=== PATIENT | female | born 1980 | race Caucasian/White ===

== ENCOUNTER 2016-06-05 13:56 | Emergency (ER) | payer SELFPAY ==
[~2016-06-05 13:56] MED LIST: BUSP15TA PO; RISP2TAB37 PO; ZANT150T2 PO
[2016-06-05 14:04] VITALS: BP 154/92; PULSE 110; RESP 18; TEMP 98.5; O2SAT 97
== END 2016-06-05 14:20 | disposition left against medical advice (07) ==
LOC: NEPE 13:56
DX: R68.89 Other general symptoms and signs (principal)
CPT/HCPCS: 99281

== ENCOUNTER 2016-06-05 14:25 | Emergency (ER) | payer SELFPAY ==
[~2016-06-05] VITALS: Ht 165.1 cm; Wt 65.0 kg
[2016-06-05 14:27] VITALS: BP 141/95; PULSE 134; RESP 20; TEMP 98.1; O2SAT 99
--- NOTE | 2016-06-05 15:18 | PD ---
HPI Chief Complaint: anxiety Time Seen by Provider: 14:39 Travel History International Travel<30 days: No Contact w/Intl Traveler<30days: No History of Present Illness HPI Is a 35-year-old woman who presents to the emergency prior to saying that she was getting her hair done, they were bleaching a, when she began to feel like " I was on fire". She describes pins and needles everywhere. Just describes her heart racing, feeling flushed, and having a confused healing. They called [facility] today brought into the emergency department. While in the waiting room she began to feel better so she left. She then came back and saying that she had a repeat episode of the same symptoms including confusion. She is a history of headaches and anxiety and previous symptoms in the past. She denies having had any symptoms exactly similar to this episode in the past. History Past Medical History Narrative Medical Lupus Depression and anxiety : 4 Para: 2 Social History Alcohol Use: No Tobacco Use: Yes (05/31 PPD) Allergies-Medications (Allergen,Severity, Reaction): Coded Allergies: Flagyl (Verified Allergy, Severe, RASH, 06/05/16) Hydrocodone (Verified Allergy, Severe, 06/05/16) Morphine (Verified Allergy, Severe, Anaphylaxis, 06/05/16) Penicillin (Verified Allergy, Severe, Anaphylaxis, 06/05/16) Sulfa (Verified Allergy, Severe, RASH, 06/05/16) Reported Meds & Prescriptions Reported Meds & Active Scripts Active Zantac (Ranitidine HCl) 150 Mg Tab 150 Mg PO BID Reported Buspirone (Buspirone HCl) 15 Mg Tab 15 Mg PO BID Risperdal (Risperidone) 2 Mg Tab 2 Mg PO HS Review of Systems Except as stated in HPI: all other systems reviewed are Neg Physical Exam Narrative GENERAL: Well-appearing 35-year-old woman, no acute distress. SKIN: Warm and dry. HEAD: Atraumatic. Normocephalic. CARDIOVASCULAR: Regular rate and rhythm. No murmur appreciated. RESPIRATORY: No accessory muscle use. Clear to auscultation. Breath sounds equal bilaterally. GASTROINTESTINAL: Abdomen soft, non-tender, nondistended. Hepatic and splenic margins not palpable. MUSCULOSKELETAL: No obvious deformities. NEUROLOGICAL: Awake and alert. No evidence of overt confusion. No obvious cranial nerve deficits. Motor grossly within normal limits. Normal speech. PSYCHIATRIC: Appropriate mood and affect; insight and judgment normal, minimally anxious. Data Data Last Documented VS Vital Signs Date Time Temp Pulse Resp B/P Pulse Ox O2 Delivery O2 Flow Rate FiO2 06/05/16 15:01 06/05/16 14:27 98.1 134 20 99 Room Air MDM Medical Decision Making Medical Screen Exam Complete: Yes Emergency Medical Condition: Yes Differential Diagnosis Anxiety, adverse reaction to salon chemicals, lupus cerebritis, other Narrative Course Medical decision making Well-appearing 35-year-old woman with what appears to be some element of anxiety related episode possibly triggered by chemicals the hair salon. She has no other evidence of lupus flare to suggest a lupus cerebritis. She is no other psychotic symptoms. Recommend supportive treatment. Diagnosis Primary Impression: Anxiety Additional Instructions: Drink plenty of fluids stay well-hydrated. Follow-up with her primary doctor on Tuesday for not feeling completely well. Med/Other Pt SpecificInfo: No Change to Meds Disposition: 01 DISCHARGE HOME Condition: Stable Janak Mariscal MD Jun 05, 2016 15:18
== END 2016-06-05 15:34 | disposition home or self-care (01) ==
LOC: NEPC 14:25
DX: F41.9 Anxiety disorder, unspecified (principal); R41.0 Disorientation, unspecified; M32.9 Systemic lupus erythematosus, unspecified; F17.210 Nicotine dependence, cigarettes, uncomplicated
CPT/HCPCS: 99283

== ENCOUNTER 2016-07-16 08:28 | Emergency (ER) | payer SELFPAY ==
[~2016-07-16] VITALS: Ht 157.5 cm; Wt 68.0 kg
[2016-07-16 08:31] VITALS: BP 148/86; PULSE 116; RESP 17; TEMP 98.2; O2SAT 97
[2016-07-16 08:47] LABS: BACTERIA, URINE RARE /hpf; BLOOD, URINE NEG (NEG); GLUCOSE,URINE NEG (NEG); KETONE, URINE NEG (NEG); NITRITE,URINE NEG (NEG); PH, URINE 5.5 (5.0-8.5); SQUAMOUS EPITHELIAL CELL URINE 1 /hpf (0-5); URINE COLOR LIGHT-YELLOW (YELLW/STRAW)
[2016-07-16 08:48] LABS: COMMENT (UR) CULT NOT INDICATED; CULTURE IF INDICATED CULT NOT INDICATED
== END 2016-07-16 10:32 | disposition left against medical advice (07) ==
LOC: NED 08:28
DX: R68.89 Other general symptoms and signs (principal)
CPT/HCPCS: 81001; 99281

== ENCOUNTER 2017-09-08 11:58 | Emergency (ER) | payer SELFPAY ==
[~2017-09-08] VITALS: Ht 157.5 cm; Wt 70.0 kg
[2017-09-08 12:19] VITALS: BP 135/70; PULSE 113; RESP 18; TEMP 98.8; O2SAT 98
--- NOTE | 2017-09-08 12:41 | PD ---
HPI Chief Complaint: Skin Problem Time Seen by Provider: 12:38 Travel History International Travel<30 days: No Contact w/Intl Traveler<30days: No Traveled to known affect area: No History of Present Illness HPI 36-year-old female presents emergency department status post sleeping at a local motel, and awakening with multiple insect bites to arms, chest, legs , and neck. She has significant itching, and low-grade fever last evening. This occurred 2 days ago. She denies fever today, but the itching is unbearable despite taking Benadryl. Patient has history of lupus and ulcerative colitis, but is currently not taking any medication for it. She denies significant pain. She is allergic to sulfa, hydrocodone, metronidazole, morphine, and penicillin. PFSH Past Medical History Arthritis: Yes Asthma: No Autoimmune Disease: Yes (LUPUS) Blood Disorders: No Anxiety: Yes Depression: Yes Heart Rhythm Problems: No Cancer: No Cardiovascular Problems: No High Cholesterol: No Chemotherapy: No Chest Pain: No Congestive Heart Failure: No COPD: No Cerebrovascular Accident: No Diabetes: No Diminished Hearing: No Endocrine: No Gastrointestinal Disorders: Yes (ULCERATIVE COLITIS) GERD: No Glaucoma: No Genitourinary: No Headaches: No Hiatal Hernia: No Hypertension: No Immune Disorder: Yes (LUPUS) Implanted Vascular Access Dvce: No Kidney Stones: Yes Musculoskeletal: Yes Neurologic: No Psychiatric: Yes Reproductive: No Respiratory: No Migraines: No Myocardial Infarction: No Radiation Therapy: No Renal Failure: No Seizures: No Sickle Cell Disease: No Sleep Apnea: No Thyroid Disease: No Ulcer: No ?: Not : 4 Para: 2 Miscarriage: 2 : 0 Ovarian Cysts: Yes Tubal Ligation: Yes Past Surgical History Abdominal Surgery: No AICD: No Body Medical Devices: LUPUS, ULCERATIVE COLITIS Cardiac Surgery: No Section: Yes (X2) Ear Surgery: No Endocrine Surgery: No Eye Surgery: No Genitourinary Surgery: No Gynecologic Surgery: Yes (C SECTION X2) Joint Replacement: No Neurologic Surgery: No Oral Surgery: Yes (TONSILECTOMY) Pacemaker: No Thoracic Surgery: No Tonsillectomy: Yes Other Surgery: Yes (tonsillectomy, c section) Social History Alcohol Use: No Tobacco Use: Yes (1/2 PPD) Substance Use: Yes (HX OF IVDA) Allergies-Medications (Allergen,Severity, Reaction): Coded Allergies: Sulfa (Sulfonamide Antibiotics) (Unverified Allergy, Severe, RASH, 09/08/17 ) hydrocodone (Unverified Allergy, Severe, 09/08/17) metronidazole (Unverified Allergy, Severe, RASH, 09/08/17) morphine (Unverified Allergy, Severe, Anaphylaxis, 09/08/17) penicillin G (Unverified Allergy, Severe, Anaphylaxis, 09/08/17) Reported Meds & Prescriptions Reported Meds & Active Scripts Active Prednisone 20 Mg Tab 20 Mg PO BID 5 Days Zantac (Ranitidine HCl) 150 Mg Tab 150 Mg PO BID Reported Buspirone (Buspirone HCl) 15 Mg Tab 15 Mg PO BID Risperdal (Risperidone) 2 Mg Tab 2 Mg PO HS Review of Systems Except as stated in HPI: all other systems reviewed are Neg General / Constitutional: Positive: Fever (Low-grade last evening per) Eyes: No: Visual changes HENT: No: Headaches Cardiovascular: No: Chest Pain or Discomfort Respiratory: No: Shortness of Breath Gastrointestinal: No: Abdominal Pain Genitourinary: No: Dysuria Musculoskeletal: No: Pain Skin: Positive Itching, Positive Lesions, No Rash Neurologic: No: Weakness Psychiatric: No: Depression Endocrine: No: Polydipsia Hematologic/Lymphatic: No: Easy Bruising Physical Exam Narrative GENERAL: Patient appears in moderate distress due to itching per SKIN: Warm and dry. Normal color. Normal turgor. Patient has greater than 30 obvious insect bites with localized erythema and swelling consistent with allergic reaction to insect bite. There is no obvious signs of drainage or lymphangitis or streaking suggestive of cellulitis. HEAD: Atraumatic. Normocephalic. EYES: Pupils equal and round. No scleral icterus. No injection or drainage. ENT: No nasal bleeding or discharge. Mucous membranes pink and moist. Pharynx is clear. Airways patent. Uvula is midline. Tongue is normal. NECK: Trachea midline. Supple and nontender per CARDIOVASCULAR: Regular rate and rhythm. RESPIRATORY: No accessory muscle use. Clear to auscultation. Breath sounds equal bilaterally. MUSCULOSKELETAL: Extremities without clubbing, cyanosis, or edema. No obvious deformities. NEUROLOGICAL: Awake and alert. No obvious cranial nerve deficits. Motor grossly within normal limits. Five out of 5 muscle strength in the arms and legs. Normal speech. PSYCHIATRIC: Appropriate mood and affect; insight and judgment normal. Data Data Last Documented VS Vital Signs Date Time Temp Pulse Resp B/P (MAP) Pulse Ox O2 Delivery O2 Flow Rate FiO2 09/08/17 12:19 98.8 113 18 135/70 (91) 98 Orders Orders Prednisone (Deltasone) (09/08/17 12:45) [facility] Medical Decision Making Medical Screen Exam Complete: Yes Emergency Medical Condition: Yes Differential Diagnosis Bedbug bites. Insect bites with allergic reaction. Cellulitis per Narrative Course Patient is given 40 mg prednisone p.o. now. Patient is continued on prednisone 20 mg twice daily for 5 days. Patient is encouraged use of [id number] Benadryl and topical Caladryl lotion for itch. Patient is given a prescription for Keflex 500 mg 3 times daily for 7 days to be started if symptoms worsen suggestive of cellulitis as discussed. Work note is given. Patient to follow-up if symptoms do not improve or worsen as needed. Diagnosis Primary Impression: Insect bite, multiple Additional Impression: Insect sting allergy, current reaction Qualified Codes: T63.481A - Toxic effect of venom of other arthropod, accidental (unintentional), initial encounter Patient Instructions: General Instructions, Insect Bite or Sting (ED) Departure Forms: Work Release Enter return to work date: Sep 10, 2017 Additional Instructions: Patient is given 40 mg prednisone p.o. now. Patient is continued on prednisone 20 mg twice daily for 5 days. Patient is encouraged use of [id number] Benadryl and topical Caladryl lotion for itch. Patient is given a prescription for Keflex 500 mg 3 times daily for 7 days to be started if symptoms worsen suggestive of cellulitis as discussed. Work note is given. Patient to follow-up if symptoms do not improve or worsen as needed. Med/Other Pt SpecificInfo: Prescription(s) given Scripts Prednisone (Prednisone) 20 Mg Tab 20 MG PO BID for 5 Days, #10 TAB 0 Refills Prov: Art Avelar MD 09/08/17 Disposition: 01 DISCHARGE HOME Condition: Stable Suman Jon Sep 08, 2017 12:41
[2017-09-08] MEDS ORDERED: PRED20 PO (12:44)
[2017-09-08] MEDS ORDERED: predniSONE 20 MG TAB PO ONE (12:45)
[2017-09-08] MEDS ORDERED: CEPH-460 PO (12:59)
== END 2017-09-08 13:02 | disposition home or self-care (01) ==
LOC: NEPK 11:58
DX: T63.481A Toxic effect of venom of other arthropod, accidental (unintentional), initial encounter (principal); F17.200 Nicotine dependence, unspecified, uncomplicated
CPT/HCPCS: 99283; J7512

== ENCOUNTER 2017-10-29 19:54 | Observation (INO) | payer SELFPAY ==
[~2017-10-29] VITALS: Ht 157.5 cm; Wt 66.0 kg
[~2017-10-29 19:54] MED LIST changes: +CEPH-460 PO; +PRED20 PO
[2017-10-29 20:17] VITALS: BP 148/77; PULSE 99; RESP 18; TEMP 99.2; O2SAT 99
[2017-10-29] MEDS ORDERED: SODIUM CHLORIDE 0.9% FLUSH 10 ML FLUSH IVF PRN (20:45)
[2017-10-29] MEDS ORDERED: ASPIRIN 81 MG CHEW TAB PO ONE (20:45)
--- NOTE | 2017-10-29 21:06 | PD ---
HPI Chief Complaint: Cardiac Complaint Time Seen by Provider: 20:35 Travel History International Travel<30 days: No Contact w/Intl Traveler<30days: No Traveled to known affect area: No History of Present Illness HPI 37-year-old female presents to the emergency department with complaint of fluttering in her chest that started about a week ago and has been worse yesterday and today and now causing her shortness of breath when it occurs. She reports chest pain and pressure that comes and goes. The pain radiates to her back. When the chest pressure/pain occurs she feels dizzy and she gets a "lemon better" sensation in her jaw. She also says it "takes her breath away." When she is free of the chest pain/pressure and shortness of breath she has a dry cough. Denies shortness of breath without the chest pain/pressure. Otherwise she denies recent illness. Denies fever, vomiting. Denies family or self cardiac history. Denies recent surgeries or travel. Denies history of DVT /PE. Denies contraception use. Denies anticoagulant. Denies pain at this time , but reports a pressure in her chest. Denies shortness of breath at this time. Says she only has shortness of breath with the results of chest pain/ pressure. She is also complaining of excessive urination and a strong urine odor. Denies abdominal pain, abnormal vaginal discharge or odor. Has tried taking BC powder for symptom management. No known aggravating or relieving factors. Does have history of IV drug use and has been clean for 11 months. Denies alcohol use. Reports tobacco use. No primary care provider. Allergies as listed on the chart. History of lupus and hepatitis C. Has no other medical complaints. No other modifying factors or associated signs and symptoms. PFSH Past Medical History Arthritis: Yes Asthma: No Autoimmune Disease: Yes (LUPUS) Blood Disorders: No Anxiety: Yes Depression: Yes Heart Rhythm Problems: No Cancer: No Cardiovascular Problems: No High Cholesterol: No Chemotherapy: No Chest Pain: No Congestive Heart Failure: No COPD: No Cerebrovascular Accident: No Diabetes: No Diminished Hearing: No Endocrine: No Gastrointestinal Disorders: Yes (ULCERATIVE COLITIS) GERD: No Glaucoma: No Genitourinary: No Headaches: No Hepatitis: Yes (c) Hiatal Hernia: No Hypertension: No Immune Disorder: Yes (LUPUS) Implanted Vascular Access Dvce: No Kidney Stones: Yes Musculoskeletal: Yes Neurologic: No Psychiatric: Yes Reproductive: No Respiratory: No Migraines: No Myocardial Infarction: No Radiation Therapy: No Renal Failure: No Seizures: No Sickle Cell Disease: No Sleep Apnea: No Thyroid Disease: No Ulcer: No ?: Not : 4 Para: 2 Miscarriage: 2 : 0 Ovarian Cysts: Yes Tubal Ligation: Yes Past Surgical History Abdominal Surgery: No AICD: No Body Medical Devices: LUPUS, ULCERATIVE COLITIS Cardiac Surgery: No Section: Yes (X2) Ear Surgery: No Endocrine Surgery: No Eye Surgery: No Genitourinary Surgery: No Joint Replacement: No Neurologic Surgery: No Oral Surgery: Yes (TONSILECTOMY) Pacemaker: No Thoracic Surgery: No Tonsillectomy: Yes Other Surgery: Yes (tonsillectomy, c section) Social History Alcohol Use: No Tobacco Use: Yes (/2 PPD) Substance Use: Yes (HX OF IVDA) Allergies-Medications (Allergen,Severity, Reaction): Coded Allergies: Sulfa (Sulfonamide Antibiotics) (Unverified Allergy, Severe, RASH, 10/29/17) hydrocodone (Unverified Allergy, Severe, 10/29/17) metronidazole (Unverified Allergy, Severe, RASH, 10/29/17) morphine (Unverified Allergy, Severe, Anaphylaxis, 10/29/17) penicillin G (Unverified Allergy, Severe, Anaphylaxis, 10/29/17) Reported Meds & Prescriptions Reported Meds & Active Scripts Active Keflex (Cephalexin) 500 Mg Cap 500 Mg PO Q8H 7 Days Prednisone 20 Mg Tab 20 Mg PO BID 5 Days Zantac (Ranitidine HCl) 150 Mg Tab 150 Mg PO BID Reported Buspirone (Buspirone HCl) 15 Mg Tab 15 Mg PO BID Risperdal (Risperidone) 2 Mg Tab 2 Mg PO HS Review of Systems Except as stated in HPI: all other systems reviewed are Neg Physical Exam Narrative GENERAL: Well-nourished, well-developed female patient, in no acute distress SKIN: Warm and dry. HEAD: Atraumatic. Normocephalic. EYES: Pupils equal and round. No scleral icterus. No injection or drainage. ENT: Mucosa pink and moist. NECK: Trachea midline. CHEST: No reproducible chest wall tenderness; no crepitance or deformity. No retractions or use of accessory muscles. CARDIOVASCULAR: Regular rate and rhythm. No murmur appreciated. RESPIRATORY: No accessory muscle use. Clear to auscultation. Breath sounds equal bilaterally. No retractions or tachypnea. GASTROINTESTINAL: Abdomen soft, non-tender, nondistended. Hepatic and splenic margins not palpable. Bowel sounds are active 4 quadrants. MUSCULOSKELETAL: No obvious deformities. No clubbing. No cyanosis. No edema. BACK: No CVA tenderness. NEUROLOGICAL: Awake and alert. Oriented 3. No obvious cranial nerve deficits. Motor grossly within normal limits. Normal speech. Moves all extremities. 5/5 strength to all extremities. PSYCHIATRIC: Appropriate mood and affect; insight and judgment normal. Data Data Last Documented VS Vital Signs Date Time Temp Pulse Resp B/P (MAP) Pulse Ox O2 Delivery O2 Flow Rate FiO2 10/29/17 20:17 99.2 99 18 148/77 (100) 99 Orders Orders Electrocardiogram (10/29/17 20:44) Basic Metabolic Panel (Bmp) (10/29/17 20:44) Ckmb (Isoenzyme) Profile (10/29/17 20:44) Complete Blood Count With Diff (10/29/17 20:44) Magnesium (Mg) (10/29/17 20:44) Prothrombin Time / Inr (Pt) (10/29/17 20:44) Act Partial Throm Time (Ptt) (10/29/17 20:44) Troponin I (10/29/17 20:44) Chest, Single Ap (10/29/17 20:44) Ecg Monitoring (10/29/17 20:44) Bilateral Bp Monitoring (10/29/17 20:44) Iv Access Insert/Monitor (10/29/17 20:44) Oximetry (10/29/17 20:44) Aspirin Chew (Aspirin Chew) (10/29/17 20:45) Sodium Chloride 0.9% Flush (Ns Flush) (10/29/17 20:45) Urinalysis - C+S If Indicated (10/29/17 20:44) D-Dimer (10/29/17 20:44) CKMB (10/29/17 21:30) CKMB% (10/29/17 21:30) Activity Bed Rest With Brp (10/29/17 22:46) Vital Signs (Adult) Q4H (10/29/17 22:46) Cardiac Rhythm .As Directed (10/29/17 22:46) Notify Dr: Other .PRN (10/29/17 22:46) Notify Parameters (10/29/17:46) Resp Oxygen Nasal Cannula (10/29/17 ) Ckmb (Isoenzyme) Profile (10/29/17 22:46) Ckmb (Isoenzyme) Profile (10/30/17 01:46) Troponin I (10/29/17 22:46) Troponin I (10/30/17 01:46) Electrocardiogram (10/29/17 22:46) Electrocardiogram (10/30/17 01:46) ^ Obtain (10/29/17 22:46) Car Top Bolter / Telemetry SANDRA.Q8H (10/29/17 22:46) Admit Order (Ed Use Only) (10/29/17 22:46) Labs Laboratory Tests Test 10/29/17 21:30 White Blood Count 8.5 TH/MM3 Red Blood Count 4.11 MIL/MM3 Hemoglobin 11.8 GM/DL Hematocrit 35.4 % Mean Corpuscular Volume 86.2 FL Mean Corpuscular Hemoglobin 28.8 PG Mean Corpuscular Hemoglobin Concent 33.4 % Red Cell Distribution Width 15.3 % Platelet Count 260 TH/MM3 Mean Platelet Volume 9.0 FL Neutrophils (%) (Auto) 60.6 % Lymphocytes (%) (Auto) 31.5 % Monocytes (%) (Auto) 6.7 % Eosinophils (%) (Auto) 0.5 % Basophils (%) (Auto) 0.7 % Neutrophils # (Auto) 5.2 TH/MM3 Lymphocytes # (Auto) 2.7 TH/MM3 Monocytes # (Auto) 0.6 TH/MM3 Eosinophils # (Auto) 0.0 TH/MM3 Basophils # (Auto) 0.1 TH/MM3 CBC Comment DIFF FINAL Differential Comment Prothrombin Time 10.9 SEC Prothromb Time International Ratio 1.1 RATIO Activated Partial Thromboplast Time 25.9 SEC D-Dimer Quantitative (PE/DVT) 0.34 MG/L FEU Urine Color COLORLESS Urine Turbidity CLEAR Urine pH 6.5 Urine Specific [place] 1.002 Urine Protein NEG mg/dL Urine Glucose (UA) NEG mg/dL Urine Ketones NEG mg/dL Urine Occult Blood NEG Urine Nitrite NEG Urine Bilirubin NEG Urine Urobilinogen LESS THAN 2.0 MG/DL Urine Leukocyte Esterase NEG Urine WBC 2 /hpf Urine Squamous Epithelial Cells 1 /hpf Microscopic Urinalysis Comment CULT NOT INDICATED Blood Urea Nitrogen 10 MG/DL Creatinine 0.73 MG/DL Random Glucose 103 MG/DL Calcium Level 8.9 MG/DL Magnesium Level 1.9 MG/DL Sodium Level 140 MEQ/L Potassium Level 3.5 MEQ/L Chloride Level 105 MEQ/L Carbon Dioxide Level 26.0 MEQ/L Anion Gap 9 MEQ/L Estimat Glomerular Filtration Rate 90 ML/MIN Total Creatine Kinase 118 U/L Troponin I LESS THAN 0.02 NG/ML MDM Medical Decision Making Medical Screen Exam Complete: Yes Emergency Medical Condition: Yes Medical Record Reviewed: Yes Differential Diagnosis Chest pain, IL, PE, anxiety, UTI Narrative Course 37-year-old female with chest pain. Patient placed on cardiopulmonary monitor. Chest pain protocol ordered. D-dimer ordered. EKG with normal sinus rhythm; no ST elevation or depression. 1040: CBC unremarkable. Coags unremarkable. D-dimer 0.34. BMP unremarkable. Magnesium 1.9. Urinalysis without signs of infection. Chest x-ray concluded: Chest X-Ray 10/29/172043 Signed Impressions: CONCLUSION: 1. Poor inspiratory result. 2. No acute focal infiltrate or pulmonary vascular congestion. 1050: Troponin less than 0.02. Findings discussed with the patient. Patient admitted to chest pain center for further treatment and evaluation. Physician Communication Physician Communication [facility] Diagnosis Primary Impression: Chest pain Qualified Codes: R07.9 - Chest pain, unspecified Admitting Information Admitting Physician Requests: Observation Margret Coyle Oct 29, 2017 21:06
--- NOTE | 2017-10-29 21:41 | RADRPT ---
EXAM DATE: 10/29/2017 9:34 PM EDT AGE/SEX: 37 years / Female INDICATIONS: Left sided Chest pain with palpitations CLINICAL DATA: This is the patient's initial encounter. Patient reports that signs and symptoms have been present for 1 day and indicates a pain score of 5/10. MEDICAL/SURGICAL HISTORY: None. None. COMPARISON: [facility] [place], CHEST SINGLE AP, 04/23/2016. . FINDINGS: A poor inspiratory result is noted. The heart is normal. The pulmonary vascular pattern is normal. Th e lungs are clear. CONCLUSION: 1. Poor inspiratory result. 2. No acute focal infiltrate or pulmonary vascular congestion. Electronically signed by: Tray Bolton MD 10/29/2017 9:40 PM EDT
[2017-10-29 21:55] LABS: BILIRUBIN, URINE NEG (NEG); BLOOD, URINE NEG (NEG); GLUCOSE,URINE NEG (NEG); KETONE, URINE NEG (NEG); NITRITE,URINE NEG (NEG); PH, URINE 6.5 (5.0-8.5); SQUAMOUS EPITHELIAL CELL URINE 1 /hpf (0-5); URINE COLOR COLORLESS (YELLW/STRAW); URINE LEUKOCYTE ESTERASE NEG (NEG)
[2017-10-29 21:56] LABS: AUTOMATED NEUTROPHIL # 5.2 TH/MM3 (1.8-7.7); BASOPHIL # 0.1 TH/MM3 (0-0.2); BASOPHIL % 0.7 % (0.0-2.0); EOSINOPHIL % 0.5 % (0.0-4.0); HEMATOCRIT 35.4 % (35.0-46.0); HEMOGLOBIN 11.8 GM/DL (11.6-15.3); LYMPH % 31.5 % (9.0-44.0); LYMPHOCYTE # 2.7 TH/MM3 (1.0-4.8); MEAN CELL VOLUME 86.2 FL (80.0-100.0); MEAN CORPUSCULAR HEMOGLOBIN 28.8 PG (27.0-34.0); MEAN CORPUSCULAR HGB CONC 33.4 % (32.0-36.0); MONO % 6.7 % (0.0-8.0); MONOCYTE # 0.6 TH/MM3 (0-0.9); NEUT % 60.6 % (16.0-70.0); PLATELET COUNT 260 TH/MM3 (150-450); RED BLOOD COUNT 4.11 MIL/MM3 (4.00-5.30); RED CELL DISTRIBUTION WIDTH 15.3 % (11.6-17.2); WHITE BLOOD COUNT 8.5 TH/MM3 (4.0-11.0)
[2017-10-29 22:11] LABS: INTERNATIONAL NORMALIZED RATIO 1.1 RATIO; PROTHROMBIN TIME - PATIENT 10.9 SEC (9.8-11.6)
[2017-10-29 22:12] LABS: D-DIMER 0.34 MG/L FEU (0.00-0.50)
[2017-10-29 22:40] LABS: BLOOD UREA NITROGEN 10 MG/DL (7-18); CALCIUM 8.9 MG/DL (8.5-10.1); CHLORIDE 105 MEQ/L (98-107); CREATININE 0.73 MG/DL (0.50-1.00); GLOMERULAR FILTRATION RATE 90 ML/MIN (>89); GLUCOSE,RANDOM 103 MG/DL (74-106); MAGNESIUM 1.9 MG/DL (1.5-2.5); SODIUM (NA) 140 MEQ/L (136-145)
[2017-10-29 22:44] LABS: TROPONIN I LESS THAN 0.02 NG/ML (0.02-0.05)
--- NOTE | 2017-10-29 23:07 | PD ---
Physical Exam Date Seen by Provider: Oct 29, 2017 Time Seen by Provider: 23:03 Narrative 37-year-old female came to the emergency room with chest pain. She was seen by the nurse practitioner and I am supervising her. Blood test results are back and her troponin and d-dimer are within acceptable limits. I went to check the patient and she was feeling comfortable. She was informed about the plan of being admitted to the chest pain center and she is agreeable to it. Data Data Last Documented VS Vital Signs Date Time Temp Pulse Resp B/P (MAP) Pulse Ox O2 Delivery O2 Flow Rate FiO2 10/29/17 20:17 99.2 99 18 148/77 (100) 99 Orders Orders Electrocardiogram (10/29/17 20:44) Basic Metabolic Panel (Bmp) (10/29/17 20:44) Ckmb (Isoenzyme) Profile (10/29/17 20:44) Complete Blood Count With Diff (10/29/17 20:44) Magnesium (Mg) (10/29/17 20:44) Prothrombin Time / Inr (Pt) (10/29/17 20:44) Act Partial Throm Time (Ptt) (10/29/17 20:44) Troponin I (10/29/17 20:44) Chest, Single Ap (10/29/17 20:44) Ecg Monitoring (10/29/17 20:44) Bilateral Bp Monitoring (10/29/17 20:44) Iv Access Insert/Monitor (10/29/17 20:44) Oximetry (10/29/17 20:44) Aspirin Chew (Aspirin Chew) (10/29/17 20:45) Sodium Chloride 0.9% Flush (Ns Flush) (10/29/17 20:45) Urinalysis - C+S If Indicated (10/29/17 20:44) D-Dimer (10/29/17 20:44) CKMB (10/29/17 21:30) CKMB% (10/29/17 21:30) Activity Bed Rest With Brp (10/29/17 22:46) Vital Signs (Adult) Q4H (10/29/17 22:46) Cardiac Rhythm .As Directed (10/29/17 22:46) Notify Dr: Other .PRN (10/29/17 22:46) Notify . Parameters (10/29/17 22:46) Resp Oxygen Nasal Cannula (10/29/17 ) Electrocardiogram (10/29/17 22:46) ^ Obtain (10/29/17 22:46) Collaborating Supervising Physician / Telemetry SANDRA.Q8H (10/29/17 22:46) Admit Order (Ed Use Only) (10/29/17 22:46) Labs Laboratory Tests Test 10/29/17 21:30 White Blood Count 8.5 TH/MM3 Red Blood Count 4.11 MIL/MM3 Hemoglobin 11.8 GM/DL Hematocrit 35.4 % Mean Corpuscular Volume 86.2 FL Mean Corpuscular Hemoglobin 28.8 PG Mean Corpuscular Hemoglobin Concent 33.4 % Red Cell Distribution Width 15.3 % Platelet Count 260 TH/MM3 Mean Platelet Volume 9.0 FL Neutrophils (%) (Auto) 60.6 % Lymphocytes (%) (Auto) 31.5 % Monocytes (%) (Auto) 6.7 % Eosinophils (%) (Auto) 0.5 % Basophils (%) (Auto) 0.7 % Neutrophils # (Auto) 5.2 TH/MM3 Lymphocytes # (Auto) 2.7 TH/MM3 Monocytes # (Auto) 0.6 TH/MM3 Eosinophils # (Auto) 0.0 TH/MM3 Basophils # (Auto) 0.1 TH/MM3 CBC Comment DIFF FINAL Differential Comment Prothrombin Time 10.9 SEC Prothromb Time International Ratio 1.1 RATIO Activated Partial Thromboplast Time 25.9 SEC D-Dimer Quantitative (PE/DVT) 0.34 MG/L FEU Urine Color COLORLESS Urine Turbidity CLEAR Urine pH 6.5 Urine Specific [place] 1.002 Urine Protein NEG mg/dL Urine Glucose (UA) NEG mg/dL Urine Ketones NEG mg/dL Urine Occult Blood NEG Urine Nitrite NEG Urine Bilirubin NEG Urine Urobilinogen LESS THAN 2.0 MG/DL Urine Leukocyte Esterase NEG Urine WBC 2 /hpf Urine Squamous Epithelial Cells 1 /hpf Microscopic Urinalysis Comment CULT NOT INDICATED Blood Urea Nitrogen 10 MG/DL Creatinine 0.73 MG/DL Random Glucose 103 MG/DL Calcium Level 8.9 MG/DL Magnesium Level 1.9 MG/DL Sodium Level 140 MEQ/L Potassium Level 3.5 MEQ/L Chloride Level 105 MEQ/L Carbon Dioxide Level 26.0 MEQ/L Anion Gap 9 MEQ/L Estimat Glomerular Filtration Rate 90 ML/MIN Total Creatine Kinase 118 U/L Creatine Kinase MB 0.7 NG/ML Troponin I LESS THAN 0.02 NG/ML [facility] Supervised Visit with LIT: Yes Interpretation(s) Twelve-lead EKG was reviewed by me. Normal sinus rhythm, normal axis, nonspecific ST-T wave changes. Heart rate of 75 bpm. Diagnosis Primary Impression: Chest pain Qualified Codes: R07.9 - Chest pain, unspecified Scripts No Active Prescriptions or Reported Meds Selwyn De León MD Oct 29, 2017 23:07
[2017-10-29 23:35] VITALS: BP 119/78; PULSE 84; RESP 16; O2SAT 96
[2017-10-29 23:47] VITALS: O2SAT 97
[2017-10-30 00:26] VITALS: BP 117/76; PULSE 79; RESP 18; TEMP 98.7; O2SAT 98
[2017-10-30 00:29] VITALS: PULSE 75
[2017-10-30 01:10] LABS: TROPONIN I LESS THAN 0.02 NG/ML (0.02-0.05)
[2017-10-30 04:00] VITALS: BP 104/66; PULSE 73; RESP 16; TEMP 98.8; O2SAT 98
[2017-10-30 04:07] VITALS: PULSE 68
[2017-10-30 04:35] LABS: TROPONIN I LESS THAN 0.02 NG/ML (0.02-0.05)
[2017-10-30] MEDS ORDERED: ACETAMINOPHEN 500 MG CPLT PO PRN (07:45)
[2017-10-30] MEDS ORDERED: NITROGLYCERIN 0.4 MG SL 25 TABS/BTL SL PRN (07:45)
[2017-10-30] MEDS ORDERED: ONDANSETRON ODT 4 MG TAB PO PRN (07:45)
[2017-10-30 08:00] VITALS: BP 103/60; PULSE 73; RESP 15; TEMP 97.3; O2SAT 98
--- NOTE | 2017-10-30 08:40 | HHI.HP ---
HPI Primary Care Physician No Primary Care Physician Chief Complaint Fluttering sensation in chest History of Present Illness 37-year-old female with history of lupus, current smoker, and hepatitis C presents the emergency room for further evaluation of intermittent "fluttering in chest." Onset 1 week, episodes increasing in frequency and intensity. Last evening's episode at 730pm reporting as severe.Location left anterior chest. Characterized initially as a vibration before changing characteristic to fluttering. Accompanied symptoms include dizziness, dyspnea, described as "taking my breath away," chest pressure, and a sensation of irregular, rapid heart beat. Checks radial pulse during episodes pulse reported to be slow and regular. Occasionally will also experience right-sided jaw pain with chest fluttering sensation. Denies accompanying nausea or vomiting. No known precipitating or relieving factors. Sensation comes on quickly, gradually subsiding. Duration varies from minutes, returning within minutes or hours later. Since arriving to ER, endorses intermittent sensation of fluttering in chest. Denies similar discomfort in the past. No recent illness, fever, travel , change in dietary habits, or increased stress. Review of Systems General: No fatigue,weakness, fever, chills, recent illness, or change in appetite. Has been her general state of health. HEENT: No CHAN, no vision changes, no nasal congestion or drainage, no dysphasia, no history of GERD CV: As stated above. No current palpitations, chest pressure, or chest discomfort. RESP: No SOB, cough, wheeze, recent URI, or history of asthma GI: No nausea, vomiting, bowel changes, diarrhea, constipation, pain, distention , melena, or blood in the stool. : No dysuria, urgency, frequency, or history of kidney stones. Over past week endorses strong smelling urine and seems to be urinating more frequently. DIETARY INTERNSHIP: Last menses last week, exact date unknown. Denies chance of , history of tubal ligation. Endorses irregular menses. EXT: No lower leg edema, no paraesthesias MS: No discomfort, injury, or change in ROM NEURO: No difficulty with balance, LOC, motor/sensory deficits PSYCH: History of depression she relates to be an IV drug user, no current feelings of anxiety or depression. No situational stress. SKIN: No rashes, no concerning lesions Past Family Social History Allergies: Coded Allergies: Sulfa (Sulfonamide Antibiotics) (Unverified Allergy, Severe, RASH, 10/29/17) hydrocodone (Unverified Allergy, Severe, 10/29/17) metronidazole (Unverified Allergy, Severe, RASH, 10/29/17) morphine (Unverified Allergy, Severe, Anaphylaxis, 10/29/17) penicillin G (Unverified Allergy, Severe, Anaphylaxis, 10/29/17) Past Medical History Lupus, hepatitis C, ulcerative colitis, former IV drug user Past Surgical History Tubal ligation, tonsillectomy, 2 Reported Medications Reported Meds & Active Scripts Active None Active Ordered Medications Current Medications Medications (Trade) Dose Ordered Sig/Jovon Route Start Time Stop Time Status Last Admin (NS Flush) 2 ml UNSCH PRN IVF 10/29/17 20:45 10/29/17 21:40 (NS Flush) 2 ml BID IV FLUSH 10/30/17 09:00 (Tylenol) 500 mg Q4H PRN PO 10/30/17 07:45 (Nitrostat Sl) 0.4 mg Q5M PRN SL 10/30/17 07:45 (Aspirin) 325 mg DAILY PO 10/30/17 09:00 (Zofran Odt) 4 mg Q6H PRN PO 10/30/17 07:45 Family History Noncontributory for early onset cardiovascular disease Social History No known hypertension, diabetes, or hyperlipidemia. Current 1 pack day smoker. Denies any illegal drugs or alcohol use. Endorses history of IVDA pain for 11 months. Endorses active lifestyle. 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 Past cardiac testing None Physical Exam Vital Signs Vital Signs Date Time Temp Pulse Resp B/P (MAP) Pulse Ox O2 Delivery O2 Flow Rate FiO2 10/30/17 06:34 21 10/30/17 04:07 68 10/30/17 04:00 98.8 73 16 104/66 (79) 98 10/30/17 00:29 75 10/30/17 00:26 98.7 79 18 117/76 (90) 98 10/30/17 00:20 10/29/17 23:47 97 Room Air 10/29/17 23:35 84 16 119/78 (92) 96 Room Air 10/29/17 20:17 99.2 99 18 148/77 (100) 99 Physical Exam GENERAL: Alert WN, WD, NAD, pleasant, female HEAD: NC, AT EYES: Sclera clear, conjunctiva without injection, pupils equal and round ENT: Mucous membranes pink and moist CV: RRR, without murmur, rub, gallop, no JVD, S1-S2 no S3-S4. RESP: Clear lungs throughout bilateral, no crackles, wheeze, rhonchi, symmetrical chest rise, nonlabored, able to speak in full sentences ABD: Soft, NT, ND, no masses, positive bowel tones EXT: Pulses +2x4, trace pedal edema MS: Normal tone x4 extremities, no obvious deformities, full range of motion NEURO: CN II through CN XII grossly intact, motor strength 5/5 PSYCH: A+O x3, pleasant affect, appropriate speech, mood, insight and judgment SKIN: Normal turgor, normal texture, no lesions, no rashes, brisk cap refill, even hair distribution Laboratory Laboratory Tests Test 10/29/17 21:30 10/30/17 00:33 10/30/17 03:49 White Blood Count 8.5 Red Blood Count 4.11 Hemoglobin 11.8 Hematocrit 35.4 Mean Corpuscular Volume 86.2 Mean Corpuscular Hemoglobin 28.8 Mean Corpuscular Hemoglobin Concent 33.4 Red Cell Distribution Width 15.3 Platelet Count 260 Mean Platelet Volume 9.0 Neutrophils (%) (Auto) 60.6 Lymphocytes (%) (Auto) 31.5 Monocytes (%) (Auto) 6.7 Eosinophils (%) (Auto) 0.5 Basophils (%) (Auto) 0.7 Neutrophils # (Auto) 5.2 Lymphocytes # (Auto) 2.7 Monocytes # (Auto) 0.6 Eosinophils # (Auto) 0.0 Basophils # (Auto) 0.1 CBC Comment DIFF FINAL Differential Comment Prothrombin Time 10.9 Prothromb Time International Ratio 1.1 Activated Partial Thromboplast Time 25.9 D-Dimer Quantitative (PE/DVT) 0.34 Urine Color COLORLESS Urine Turbidity CLEAR Urine pH 6.5 Urine Specific [place] 1.002 Urine Protein NEG Urine Glucose (UA) NEG Urine Ketones NEG Urine Occult Blood NEG Urine Nitrite NEG Urine Bilirubin NEG Urine Urobilinogen LESS THAN 2.0 Urine Leukocyte Esterase NEG Urine WBC 2 Urine Squamous Epithelial Cells 1 Microscopic Urinalysis Comment CULT NOT INDICATED Blood Urea Nitrogen 10 Creatinine 0.73 Random Glucose 103 Calcium Level 8.9 Magnesium Level 1.9 Sodium Level 140 Potassium Level 3.5 Chloride Level 105 Carbon Dioxide Level 26.0 Anion Gap 9 Estimat Glomerular Filtration Rate 90 Total Creatine Kinase 118 114 90 Creatine Kinase MB 0.7 0.7 Troponin I LESS THAN 0.02 LESS THAN 0.02 LESS THAN 0.02 Result Diagram: 10/29/17212910/29/172129 Imaging Last 48 hours Impressions Chest X-Ray 10/29/172043 Signed Impressions: CONCLUSION: 1. Poor inspiratory result. 2. No acute focal infiltrate or pulmonary vascular congestion. Course EKG Normal sinus rhythm, normal axis, no ST-T segment change Caprini VTE Risk Assessment Caprini VTE Risk Assessment: No/Low Risk (score <= 1) Caprini Risk Assessment Model Point Value = 1 Point Value = 2 Point Value = 3 Point Value = 5 Age 41-60 Minor surgery BMI > 25 kg/m2 Swollen legs Varicose veins or History of unexplained or recurrent spontaneous Oral contraceptives or hormone replacement Sepsis (< 1 month) Serious lung disease, including pneumonia (< 1 month) Abnormal pulmonary function Acute myocardial infarction Congestive heart failure (< 1 month) History of inflammatory bowel disease Medical patient at bed rest Age 61-74 Arthroscopic surgery Major open surgery (> 45 min) Laparoscopic surgery (> 45 min) Malignancy Confined to bed (> 72 hours) Immobilizing plaster cast Central venous access Age >= 75 History of VTE Family history of VTE Factor V Leiden Prothrombin 42309H Lupus anticoagulant Anticardiolipin antibodies Elevated serum homocysteine Heparin-induced thrombocytopenia Other congenital or acquired thrombophilia Stroke (< 1 month) Elective arthroplasty Hip, pelvis, or leg fracture Acute spinal cord injury (< 1 month) Prophylaxis Regimen Total Risk Factor Score Risk Level Prophylaxis Regimen 0-1 Low Early ambulation 2 Moderate Order ONE of the following: *Sequential Compression Device (SCD) *Heparin 5000 units SQ BID 3-4 Higher Order ONE of the following medications: *Heparin 5000 units SQ TID *Enoxaparin/Lovenox 40 mg SQ daily (WT < 150 kg, CrCl > 30 mL/min) *Enoxaparin/Lovenox 30 mg SQ daily (WT < 150 kg, CrCl > 10-29 mL/min) *Enoxaparin/Lovenox 30 mg SQ BID (WT < 150 kg, CrCl > 30 mL/min) AND/OR *Sequential Compression Device (SCD) 5 or more Highest Order ONE of the following medications: *Heparin 5000 units SQ TID (Preferred with Epidurals) *Enoxaparin/Lovenox 40 mg SQ daily (WT < 150 kg, CrCl > 30 mL/min) *Enoxaparin/Lovenox 30 mg SQ daily (WT < 150 kg, CrCl > 10-29 mL/min) *Enoxaparin/Lovenox 30 mg SQ BID (WT < 150 kg, CrCl > 30 mL/min) AND *Sequential Compression Device (SCD) Assessment and Plan Assessment and Plan #1 Atypical chest pain with palpations-admitted chest pain center. Ruled out 3 sets of EKGs, cardiac enzymes, and monitor on telemetry overnight. Telemetry reviewed without signs of arrhythmias or tachycardias. Will be seen and evaluated by Dr. Stew Reed. Discussed likely will complete exercise stress test, monitoring closely for any arrhythmias during exercise stress test. Reassurance provided she is a low probability for coronary atherosclerosis, however due to risk factor of smoking and uncertainty of accompanying chest pressure not unreasonable to continue with exercise stress test. If testing unremarkable, plan to discharge home later this afternoon with follow-up with a primary care provider. Verbalizes understanding and is agreeable to plan of care. #2 Tobacco use-strongly encouraged and stressed importance of tobacco cessation. Instructed to quit smoking. #3 History of Hepatitis C- encouraged contacting [facility] to determine available hepatitis C curative programs available in the area. Encouraged establishing with a primary care provider. Information provided and discussed of available fee for service or [facility] local clinics, such as, [facility] as well as the [facility] clinic. Also encouraged her to contact [facility] for her concern over irregular menses and request an annual DIETARY INTERNSHIP examination. Prerna Trejo Oct 30, 2017 08:40
[2017-10-30] MEDS ORDERED: ASPIRIN 325 MG TAB PO SCH (09:00)
[2017-10-30] MEDS ORDERED: SODIUM CHLORIDE 0.9% FLUSH 10 ML FLUSH IV FLUSH SCH (09:00)
--- NOTE | 2017-10-30 10:36 | EKG ---
Date Performed: 10/30/2017 Time Performed: 03:30:24 PTAGE: 37 years EKG: Sinus rhythm NORMAL ECG PREVIOUS TRACING : 10/30/2017 00.18 Since previous tracing, no significant change noted DOCTOR: Stew Reed Interpretating Date/Time 10/30/2017 10:34:57
--- NOTE | 2017-10-30 10:38 | EKG ---
Date Performed: 10/30/2017 Time Performed: 00:18:25 PTAGE: 37 years EKG: Sinus rhythm NORMAL ECG PREVIOUS TRACING : 10/29/2017 21.19 Since previous tracing, no significant change noted DOCTOR: Stew Reed Interpretating Date/Time 10/30/2017 10:36:33
--- NOTE | 2017-10-30 11:00 | HHI.DCPOC ---
Discharge Care Plan Diagnosis: (1) Intermittent palpitations (2) Atypical chest pain (3) Tobacco abuse (4) Situational stress Goals to Promote Your Health * To prevent worsening of your condition and complications * To maintain your health at the optimal level Directions to Meet Your Goals Take your medications as prescribed Follow your dietary instruction Follow activity as directed Keep your appointments as scheduled Take your immunizations and boosters as scheduled If your symptoms worsen call your PCP, if no PCP go to Urgent Care Center or Emergency Room Smoking is Dangerous to Your Health. Avoid second hand smoke Call the 24-hour hour crisis hotline for domestic abuse at Prerna Trejo Oct 30, 2017 11:00
--- NOTE | 2017-10-30 11:06 | TR ---
Date Performed: 10/30/2017 Time Performed: 10:34:18 DOCTOR: Stew Reed DRUG LIST: CLINICAL HISTORY: CHEST PAIN REASON FOR TEST: Chest pain REASON FOR ENDING: OBSERVATION: CONCLUSION: Kaleb protocol completed. Stopped sec to excedding target heart rate and leg fatigue . Maximum PP=844 Max HR Achieved=87.0% Maximum FA=258/80 Total Exercise Time=7:31. No reprod chest di scomfort. No ectopy or arrhythmias. No st t segment changes. Good exercise tolerance. Normal bp respo nse. Recovery quick and unremarkable. COMMENTS: Conclusion: Normal treadmill exercise. No evidence of ischemia.
--- NOTE | 2017-10-30 17:31 | EKG ---
Date Performed: 10/29/2017 Time Performed: 21:19:01 PTAGE: 37 years EKG: Sinus rhythm Since the previous tracing, no significant change noted NORMAL ECG PREVIOUS TRACING : 04/25/2016 13.54 DOCTOR: Stew Reed Interpretating Date/Time 10/30/2017 17:29:56
== END 2017-10-30 11:28 | disposition home or self-care (01) ==
LOC: NEPD 19:54 → NEDA 22:50 → NEPFCDU 10-30 00:12
DX: R07.89 Other chest pain (principal); B19.20 Unspecified viral hepatitis C without hepatic coma; R68.84 Jaw pain; K51.90 Ulcerative colitis, unspecified, without complications; F17.200 Nicotine dependence, unspecified, uncomplicated
CPT/HCPCS: 71045; 80048; 81001; 82550; 82552; 83735; 84484; 85025; 85379; 85610; 85730; 93005; 93017; 99285; G0378